=== PATIENT | male | born 1955 | race Caucasian/White ===

== ENCOUNTER 2017-05-20 09:30 | Emergency (ER) | payer SELFPAY ==
[~2017-05-20] VITALS: Ht 188 cm; Wt 87.0 kg
[~2017-05-20 09:30] MED LIST: CIPR250T2 PO; HYDR10TA16 PO; NAPR550 PO; PROM25SU8 PO; Z.0.NO CURRENT MEDS
[2017-05-20 09:31] VITALS: BP 144/74; PULSE 110; RESP 24; TEMP 97.9; O2SAT 99
[2017-05-20 09:40] VITALS: O2SAT 99
[2017-05-20 09:42] VITALS: BP 126/71; PULSE 92; RESP 15; O2SAT 98
[2017-05-20] MEDS ORDERED: ORPHENADRINE INJ 60 MG/2 ML AMP IM ONE (10:00)
[2017-05-20] MEDS ORDERED: PANTOPRAZOLE SODIUM 40 MG VIAL IV PUSH ONE (10:00)
--- NOTE | 2017-05-20 10:05 | PD ---
HPI Chief Complaint: GI Complaint Time Seen by Provider: 09:52 Travel History International Travel<30 days: No Contact w/Intl Traveler<30days: No Traveled to known affect area: No History of Present Illness HPI 61-year-old male presents with right sided low back pain after he has been doing more heavy labor with twisting movement and lifting. He states that he hasn't had any trauma. He states that he took 4 Motrin for the pain which she doesn't usually take medication and after that he noticed that his stool was a little bloody. He states that this is been since yesterday. He states the pain is back is been for a day or 2. He denies recurrent history of this. He denies any other concurrent complaints. Quality is sharp. Severity is moderate. He notes pain is worse with movement. He denies any other modifying factors. PFSH Past Medical History Medical History: Denies Significant Hx Past Surgical History Oral Surgery: Yes Social History Alcohol Use: No (QUIT 1990) Tobacco Use: Yes Substance Use: No Allergies-Medications (Allergen,Severity, Reaction): Coded Allergies: aspirin (Unverified Allergy, Severe, 05/12/17) codeine (Unverified Allergy, Severe, 05/12/17) penicillin G (Unverified Allergy, Severe, 05/12/17) Reported Meds & Prescriptions Reported Meds & Active Scripts Active No Active Prescriptions or Reported Medications Review of Systems Except as stated in HPI: all other systems reviewed are Neg Physical Exam Narrative GENERAL: Well-nourished, well-developed patient. SKIN: Warm and dry. HEAD: Normocephalic and atraumatic. EYES: No injection or drainage. ENT: No nasal drainage noted. NECK: Supple, trachea midline. CARDIOVASCULAR: Regular rate and rhythm RESPIRATORY: No increased effort. No accessory muscle use. GASTROINTESTINAL: Abdomen soft, non-tender, nondistended. EXTREMITIES: No edema. RECTAL EXAM: Performed with card filer and after permission. No external hemorrhoid or fissure, stool is brown, non-bloody. BACK: Nontender without obvious deformity in midline, no CVA tenderness. Right lower back laterally with tenderness without associated hematoma or trauma changes NEUROLOGICAL: Awake and alert. Motor and sensory grossly within normal limits. Normal speech. Data Data Last Documented VS Vital Signs Date Time Temp Pulse Resp B/P (MAP) Pulse Ox O2 Delivery O2 Flow Rate FiO2 8/23/17 09:42 92 15 126/71 (89) 98 Room Air 05/20/17 09:31 97.9 Orders Orders Complete Blood Count With Diff (05/20/17 09:41) Comprehensive Metabolic Panel (05/20/17 09:41) Act Partial Throm Time (Ptt) (05/20/17 09:41) Prothrombin Time / Inr (Pt) (05/20/17 09:41) Iv Access Insert/Monitor (05/20/17 09:41) Ecg Monitoring (05/20/17 09:41) Oximetry (05/20/17 09:41) Type And Screen (05/20/17 09:41) Orphenadrine Inj (Norflex Inj) (05/20/17 10:00) Pantoprazole Inj (Protonix Inj) (05/20/17 10:00) Potassium Chloride Eff (K-Lyte Cl Eff) (05/20/17 11:00) Magnesium (Mg) (05/20/17 09:45) Labs Laboratory Tests Test 05/20/17 09:45 White Blood Count 4.8 TH/MM3 Red Blood Count 4.46 MIL/MM3 Hemoglobin 14.6 GM/DL Hematocrit 41.7 % Mean Corpuscular Volume 93.4 FL Mean Corpuscular Hemoglobin 32.7 PG Mean Corpuscular Hemoglobin Concent 35.0 % Red Cell Distribution Width 13.6 % Platelet Count 103 TH/MM3 Mean Platelet Volume 10.1 FL Neutrophils (%) (Auto) 51.8 % Lymphocytes (%) (Auto) 35.6 % Monocytes (%) (Auto) 9.5 % Eosinophils (%) (Auto) 2.2 % Basophils (%) (Auto) 0.9 % Neutrophils # (Auto) 2.5 TH/MM3 Lymphocytes # (Auto) 1.7 TH/MM3 Monocytes # (Auto) 0.5 TH/MM3 Eosinophils # (Auto) 0.1 TH/MM3 Basophils # (Auto) 0.0 TH/MM3 CBC Comment DIFF FINAL Differential Comment Prothrombin Time 12.6 SEC Prothromb Time International Ratio 1.1 RATIO Activated Partial Thromboplast Time 30.6 SEC Blood Urea Nitrogen 15 MG/DL Creatinine 1.05 MG/DL Random Glucose 154 MG/DL Total Protein 7.7 GM/DL Albumin 3.5 GM/DL Calcium Level 9.0 MG/DL Magnesium Level 1.5 MG/DL Alkaline Phosphatase 120 U/L Aspartate Amino Transf (AST/SGOT) 89 U/L Alanine Aminotransferase (ALT/SGPT) 82 U/L Total Bilirubin 1.5 MG/DL Sodium Level 137 MEQ/L Potassium Level 2.9 MEQ/L Chloride Level 105 MEQ/L Carbon Dioxide Level 21.6 MEQ/L Anion Gap 10 MEQ/L Estimat Glomerular Filtration Rate 72 ML/MIN [facility] Medical Decision Making Medical Screen Exam Complete: Yes Emergency Medical Condition: Yes Medical Record Reviewed: Yes (past history confirmed) Interpretation(s) CBC & BMP Diagram 05/20/17 09:45 Total Protein 7.7, Albumin 3.5, Calcium Level 9.0, Magnesium Level 1.5, Alkaline Phosphatase 120 H, Aspartate Amino Transf (AST/SGOT) 89 H, Alanine Aminotransferase (ALT/SGPT) 82 H, Total Bilirubin 1.5 H Differential Diagnosis Strain, disc disease, gastritis.... Narrative Course Patient without active bleeding, Will check blood work and dose with Norflex and Protonix and reevaluate. No current midline pain or red flag symptoms so patient agrees to hold on imaging Lab work shows critical hypokalemia 2.9. Given 50 mEq potassium here and advised to follow this closely with primary. He is having no active vomiting or diarrhea. Patient understands and is wanting to go without further testing, Patient denies any new complaints and states that they are feeling better. Patient happy with care, all questions answered. Patient knows that follow up is incumbent on them and to return to the emergency room immediately if new or worsening symptoms develop. Patient given strict return precautions, vitals reviewed and are normal, agrees to further workup as an outpatient. [facility] Point of Care Internal Pos. & Neg. Controls: Passed Fecal Specimen Occult Blood: Negative Diagnosis Primary Impression: Back pain Qualified Codes: M54.5 - Low back pain Additional Impressions: Rectal bleeding Hypokalemia Patient Instructions: General Instructions, Hypokalemia (ED) Additional Instructions: return as needed, tylenol as needed, follow with primary this week, zantac over the counter as needed Med/Other Pt SpecificInfo: No Change to Meds Scripts No Active Prescriptions or Reported Meds Disposition: DISCHARGE HOME Condition: Stable Debby Duval MD May 20, 2017 10:05
[2017-05-20 10:13] LABS: AUTOMATED NEUTROPHIL # 2.5 TH/MM3 (1.8-7.7); BASOPHIL % 0.9 % (0.0-2.0); EOSINOPHIL # 0.1 TH/MM3 (0-0.4); EOSINOPHIL % 2.2 % (0.0-4.0); HEMATOCRIT 41.7 % (39.0-51.0); HEMO FLAGS DIFF FINAL; LYMPH % 35.6 % (9.0-44.0); LYMPHOCYTE # 1.7 TH/MM3 (1.0-4.8); MEAN CELL VOLUME 93.4 FL (80.0-100.0); MEAN CORPUSCULAR HEMOGLOBIN 32.7 PG (27.0-34.0); MONO % 9.5 % (0.0-8.0); NEUT % 51.8 % (16.0-70.0); PLATELET COUNT 103 TH/MM3 (150-450); RED BLOOD COUNT 4.46 MIL/MM3 (4.50-5.90); RED CELL DISTRIBUTION WIDTH 13.6 % (11.6-17.2); WHITE BLOOD COUNT 4.8 TH/MM3 (4.0-11.0)
[2017-05-20 10:23] LABS: APTT (PATIENT) 30.6 SEC (24.3-30.1); INTERNATIONAL NORMALIZED RATIO 1.1 RATIO; PROTHROMBIN TIME - PATIENT 12.6 SEC (9.8-11.6)
[2017-05-20 10:40] LABS: ALKALINE PHOSPHATASE 120 U/L (45-117); ALT (GPT) 82 U/L (12-78); ANION GAP 10 MEQ/L (5-15); AST (GOT) 89 U/L (15-37); BICARBONATE 21.6 MEQ/L (21.0-32.0); BLOOD UREA NITROGEN 15 MG/DL (7-18); CHLORIDE 105 MEQ/L (98-107); GLOMERULAR FILTRATION RATE 72 ML/MIN (>89); SODIUM (NA) 137 MEQ/L (136-145); TOTAL BILIRUBIN ADULT 1.5 MG/DL (0.2-1.0)
[2017-05-20 10:45] LABS: POTASSIUM 2.9 MEQ/L (3.5-5.1)
[2017-05-20] MEDS ORDERED: POTASSIUM CHLORIDE 25 MEQ EFFERVESCENT TAB PO ONE (11:00)
[2017-05-20 12:23] LABS: MAGNESIUM 1.5 MG/DL (1.5-2.5)
[2017-05-20 13:27] VITALS: BP 124/74
== END 2017-05-20 13:28 | disposition home or self-care (01) ==
LOC: NEPE 09:30
DX: M54.5 Low back pain (principal); K62.5 Hemorrhage of anus and rectum; E87.6 Hypokalemia; Z72.0 Tobacco use
CPT/HCPCS: 80053; 83735; 85025; 85610; 85730; 86850; 86900; 86901; 96374; 96375; 99284; C9113; J2360